=== PATIENT | female | born 1975 | race Hispanic/Latino ===

== ENCOUNTER → 2020-12-15 | Outpatient (CLI) | payer BC ==
[2020-12-15 11:52] LABS: BASO # 0.1 10^3/uL (0.0-0.2); BASO % 0.8 % (0.0-1.0); EOS # 0.2 10^3/uL (0.0-0.5); EOS % 2.2 % (0.0-3.0); HEMATOCRIT 35.7 % (36.0-47.0); HEMOGLOBIN 10.8 g/dl (12.0-15.5); LYMPH # 2.1 10^3/uL (1.5-5.0); LYMPH % 24.5 % (24.0-44.0); MEAN CORPUSCULAR HEMOGLOBIN 20.5 pg (27.0-33.0); MEAN CORPUSCULAR HGB CONC 30.3 g/dl (32.0-36.5); MEAN CORPUSCULAR VOLUME 67.6 fl (80.0-96.0); MONO # 0.7 10^3/uL (0.0-0.8); MONO % 7.8 % (2.0-8.0); NEUTROPHILS # 5.6 10^3/uL (1.5-8.5); NEUTROPHILS % 64.4 % (36.0-66.0); PLATELET COUNT, AUTOMATED 355 10^3/uL (150-450); RED BLOOD COUNT 5.28 10^6/uL (4.00-5.40); WHITE BLOOD COUNT 8.7 10^3/uL (4.0-10.0)
[2020-12-15 12:36] LABS: ALBUMIN 3.9 GM/DL (3.2-5.2); ALT/SGPT 215 U/L (12-78); BILIRUBIN,DIRECT 0.2 MG/DL (0.0-0.2); BILIRUBIN,TOTAL 0.5 MG/DL (0.2-1.0); BLOOD UREA NITROGEN 7 MG/DL (7-18); CREATININE FOR GFR 0.55 MG/DL (0.55-1.30); GLOMERULAR FILTRATION RATE > 60.0 (>58); TOTAL PROTEIN 7.2 GM/DL (6.4-8.2)
== END ==
LOC: M LAB 11:00
PROVIDERS: ATTEND Internal Medicine Gastroenterology
DX: E10.9 Type 1 diabetes mellitus without complications (principal)

== ENCOUNTER → 2021-02-17 | Outpatient (REF) | payer BC ==
[~2021-02-17] MED LIST: BUPR300T92 PO; LISI10TA22 PO; METF10004; METO1TAB87 PO; ROSU40TA4 PO; TIZA4TAB4 PO; TRAZ-189 PO; ZOLO100T PO
== END ==
LOC: M LAB REF 10:25
PROVIDERS: ATTEND Internal Medicine Gastroenterology
DX: R10.30 Lower abdominal pain, unspecified (principal)

== ENCOUNTER → 2021-02-17 | Outpatient (CLI) | payer BC | LOC: M LABSMTC 10:04 | PROVIDERS: ATTEND Anesthesiology | DX: Z01.812 Encounter for preprocedural laboratory examination (principal) ==

== ENCOUNTER 2021-02-22 11:24 | Day surgery (SDC) | payer BC ==
[~2021-02-22] VITALS: Ht 157.5 cm; Wt 78.9 kg
[~2021-02-22 11:24] MED LIST changes: +LIDOCAINE 2% 100MG/5ML SDV (FOR ANES.) As Ordered ONE; +NS 1,000 ML IV ONE; +propofoL 500 MG/50 ML VIAL As Ordered ONE
--- NOTE | 2021-02-22 14:18 | ROOR ---
Patient Name: Erika Sarabia Procedure Date: 02/22/2021 1:36 PM Date of : 1975 Age: 46 Room: [facility] Gender: Female Note Status: Finalized Procedure: Colonoscopy Indications: Acute post hemorrhagic anemia Providers: Alvaro Barlow MD Referring MD: HAYDEE CHRISTIAN MD Requesting Provider: Medicines: Monitored Anesthesia Care Complications: No immediate complications. Procedure: Pre-Anesthesia Assessment: - Prior to the procedure, a History and Physical was performed, and patient medications and allergies were reviewed. The patient is competent. The risks and benefits of the procedure and the sedation options and risks were discussed with the patient. All questions were answered and informed consent was obtained. Patient identification and proposed procedure were verified by the physician, the nurse and the anesthesiologist in the procedure room. Mental Status Examination: alert and oriented. Airway Examination: normal oropharyngeal airway and neck mobility. Respiratory Examination: clear to auscultation. CV Examination: normal. Prophylactic Antibiotics: The patient does not require prophylactic antibiotics. Prior Anticoagulants: The patient has taken no previous anticoagulant or antiplatelet agents. ASA Grade Assessment: II - A patient with mild systemic disease. After reviewing the risks and benefits, the patient was deemed in satisfactory condition to undergo the procedure. The anesthesia plan was to use monitored anesthesia care (MAC). Immediately prior to administration of medications, the patient was re-assessed for adequacy to receive sedatives. The heart rate, respiratory rate, oxygen saturations, blood pressure, adequacy of pulmonary ventilation, and response to care were monitored throughout the procedure. The physical status of the patient was re-assessed after the procedure. The Colonoscope was introduced through the anus and advanced to the terminal ileum, with identification of the appendiceal orifice and IC valve. The colonoscopy was performed without difficulty. The patient tolerated the procedure well. The quality of the bowel preparation was good. The terminal ileum, ileocecal valve, appendiceal orifice, and rectum were photographed. Scope insertion time was 2 minutes. Scope withdrawal time was 6 minutes. The total duration of the procedure was 10 minutes. Findings: The perianal and digital rectal examinations were normal. The terminal ileum appeared normal. Normal mucosa was found in the entire colon. Non-bleeding external and internal hemorrhoids were found during retroflexion. The hemorrhoids were small. Impression: - The examined portion of the ileum was normal. - Normal mucosa in the entire examined colon. - Non-bleeding external and internal hemorrhoids. - No specimens collected. Recommendation: - Patient has a contact number available for emergencies. The signs and symptoms of potential delayed complications were discussed with the patient. Return to normal activities tomorrow. Written discharge instructions were provided to the patient. - High fiber diet. - Continue present medications. - Await pathology results. - Repeat colonoscopy at age 52 for screening purposes. - Return to GI clinic in [facility] (address [address], [address], [place], [facility]) in 4 -- 6 weeks. Please call GI clinic @ [phone] for apppointment date and time. - Return to primary care physician. Procedure Code(s): --- Professional --- 64766, Colonoscopy, flexible; diagnostic, including collection of specimen(s) by brushing or washing, when performed (separate procedure) Diagnosis Code(s): --- Professional --- K64.8, Other hemorrhoids D62, Acute posthemorrhagic anemia CPT copyright 2019 [employer]. All rights reserved. The codes documented in this report are preliminary and upon front office representative review may be revised to meet current compliance requirements. Alvaro Barlow MD Alvaro Barlow MD 02/22/2021 2:18:31 PM Electronically signed by Alvaro Barlow MD Number of Addenda: 0 Note Initiated On: 02/22/2021 1:36 PM Estimated Blood Loss: Estimated blood loss: none.
--- NOTE | 2021-02-22 14:20 | ROOR ---
Patient Name: Erika Sarabia Procedure Date: 02/22/2021 1:35 PM Date of : 1975 Age: 46 Room: [facility] Gender: Female Note Status: Finalized Procedure: Upper GI endoscopy Indications: Acute post hemorrhagic anemia, Dyspepsia Providers: Alvaro Barlow MD Referring MD: HAYDEE CHRISTIAN MD Requesting Provider: Medicines: Monitored Anesthesia Care Complications: No immediate complications. Procedure: Pre-Anesthesia Assessment: - Prior to the procedure, a History and Physical was performed, and patient medications and allergies were reviewed. The patient is competent. The risks and benefits of the procedure and the sedation options and risks were discussed with the patient. All questions were answered and informed consent was obtained. Patient identification and proposed procedure were verified by the physician, the nurse and the anesthesiologist in the procedure room. Mental Status Examination: alert and oriented. Airway Examination: normal oropharyngeal airway and neck mobility. Respiratory Examination: clear to auscultation. CV Examination: normal. Prophylactic Antibiotics: The patient does not require prophylactic antibiotics. Prior Anticoagulants: The patient has taken no previous anticoagulant or antiplatelet agents. ASA Grade Assessment: II - A patient with mild systemic disease. After reviewing the risks and benefits, the patient was deemed in satisfactory condition to undergo the procedure. The anesthesia plan was to use monitored anesthesia care (MAC). Immediately prior to administration of medications, the patient was re-assessed for adequacy to receive sedatives. The heart rate, respiratory rate, oxygen saturations, blood pressure, adequacy of pulmonary ventilation, and response to care were monitored throughout the procedure. The physical status of the patient was re-assessed after the procedure. The Endoscope was introduced through the mouth, and advanced to the second part of duodenum. The upper GI endoscopy was accomplished without difficulty. The patient tolerated the procedure well. Findings: A small hiatal hernia was present. The Z-line was regular and was found in the distal esophagus. Scattered mild inflammation characterized by erythema, friability and granularity was found in the gastric antrum. Biopsies were taken with a cold forceps for Helicobacter pylori testing. Verification of patient identification for the specimen was done by the physician and nurse using the patient's name, date and medical record number. Estimated blood loss was minimal. The duodenal bulb and second portion of the duodenum were normal. Biopsies for histology were taken with a cold forceps for evaluation of celiac disease. Impression: - Small hiatal hernia. - Z-line regular, in the distal esophagus. - Gastritis. Biopsied. - Normal duodenal bulb and second portion of the duodenum. Biopsied. Recommendation: - Patient has a contact number available for emergencies. The signs and symptoms of potential delayed complications were discussed with the patient. Return to normal activities tomorrow. Written discharge instructions were provided to the patient. - High fiber diet. - Follow an antireflux regimen. - Await pathology results. - Return to GI clinic in [facility] (address [address], [address], [place], [facility]) in 4 -- 6 weeks. Please call GI clinic @ [phone] for apppointment date and time. - Check CBC, serum iron , transferrin and ferritin levels (fasting labs) in 4 weeks. - Return to primary care physician. Procedure Code(s): --- Professional --- 13353, Esophagogastroduodenoscopy, flexible, transoral; with biopsy, single or multiple Diagnosis Code(s): --- Professional --- K44.9, Diaphragmatic hernia without obstruction or gangrene K29.70, Gastritis, unspecified, without bleeding D62, Acute posthemorrhagic anemia R10.13, Epigastric pain CPT copyright 2019 [employer]. All rights reserved. The codes documented in this report are preliminary and upon dehydrogenation converter operator review may be revised to meet current compliance requirements. Alvaro Barlow MD Alvaro Barlow MD 02/22/2021 2:19:58 PM Electronically signed by Alvaro Barlow MD Number of Addenda: 0 Note Initiated On: 02/22/2021 1:35 PM Estimated Blood Loss: Estimated blood loss was minimal.
[2021-02-22 14:45] VITALS: BP 142/67
[2021-02-23] MEDS ORDERED: COVI30VI IM (14:21)
== END 2021-02-22 14:58 | disposition home or self-care (01) ==
LOC: M OPP 11:24
PROVIDERS: ATTEND Internal Medicine Gastroenterology
DX: D62 Acute posthemorrhagic anemia (principal); K64.8 Other hemorrhoids; K44.9 Diaphragmatic hernia without obstruction or gangrene; K29.70 Gastritis, unspecified, without bleeding; R10.13 Epigastric pain; K76.89 Other specified diseases of liver; Z79.899 Other long term (current) drug therapy

== ENCOUNTER 2023-03-23 15:16 | Day surgery (SDC) | payer BC ==
[~2023-03-23] VITALS: Ht 154.9 cm; Wt 63.3 kg
[~2023-03-23 15:16] MED LIST changes: +COVI30VI IM; -LIDOCAINE 2% 100MG/5ML SDV (FOR ANES.) As Ordered ONE; -NS 1,000 ML IV ONE; +TIZA10TA PO; -TIZA4TAB4 PO; -propofoL 500 MG/50 ML VIAL As Ordered ONE
[2023-03-23 18:30] VITALS: BP 150/96; TEMP 97.9; O2SAT 98
[2023-03-23] MEDS ORDERED: LORA1TAB23 PO (19:16)
[2023-03-23] MEDS ORDERED: RAMI1CAP21 PO (19:16)
[2023-03-23] MEDS ORDERED: SERO1TAB3 PO (19:16)
[2023-03-23] MEDS ORDERED: MIRT-11 PO (19:16)
[2023-03-23] MEDS ORDERED: HOME MED LIST COMPLETE! XX SCH (19:20)
[2023-03-23 20:20] VITALS: BP 149/95; TEMP 97.9; O2SAT 100
[2023-03-23] MEDS: LR 1,000 ML IV SCH (20:44)
[2023-03-23] MEDS: PIPERACILLIN/TAZOBACTAM SOD 3.375 GM in D5W MINI-BAG PLUS 50 ML IV SCH (20:44)
[2023-03-23] MEDS: ONDANSETRON 4MG 2ML VIAL IV PRN (20:45)
[2023-03-23] MEDS ORDERED: PERCOCET 5MG/325MG TAB PO PRN ×2 (22:30→22:45)
[2023-03-24] VITALS (10 sets, daily range): BP systolic 115–141; BP diastolic 68–87; TEMP 97.3–98.1; O2SAT 98–100
[2023-03-24] MEDS ORDERED: diphenhydrAMINE 50MG/ML VIAL IV STA (02:16)
[2023-03-24] MEDS: LR 1,000 ML IV SCH ×3 (02:45→17:27)
[2023-03-24] MEDS: PIPERACILLIN/TAZOBACTAM SOD 3.375 GM in D5W MINI-BAG PLUS 50 ML IV SCH (03:00)
[2023-03-24] MEDS: ONDANSETRON 4MG 2ML VIAL IV PRN ×3 (03:11→21:16)
[2023-03-24] MEDS ORDERED: LIDOCAINE 1% MDV 20ML VIAL As Ordered ONE (08:02)
[2023-03-24] MEDS ORDERED: ZOSYN 3.375GM VIAL As Ordered ONE (08:47)
[2023-03-24] MEDS ORDERED: HYDROMORPHONE HCL 0.5 MG/ 0.5 ML SYRINGE IV PRN (09:30)
[2023-03-24] MEDS ORDERED: ONDANSETRON 4MG 2ML VIAL IV PRN (09:30)
[2023-03-24] MEDS ORDERED: LR 1,000 ML IV SCH (09:30)
[2023-03-24] MEDS ORDERED: NORCO, ANEXSIA 5/325MG TABLET (HYDROcodone/ACETAMINOPHEN) PO PRN (09:45)
[2023-03-24] MEDS ORDERED: PHENYLephrine 500MCG 5ML (100MCG/ML) SYRINGE As Ordered ONE (09:49)
[2023-03-24] MEDS ORDERED: ROCURONIUM BROMIDE 50MG/5ML VIAL As Ordered ONE (09:49)
[2023-03-24] MEDS ORDERED: ePHEDrine SULFATE 25 MG/5 ML(5MG/ML) SYRINGE As Ordered ONE (09:49)
[2023-03-24] MEDS ORDERED: SUGAMMADEX SODIUM 500 MG/5 ML VIAL (BRIDION) As Ordered ONE (09:49)
[2023-03-24] MEDS ORDERED: ONDANSETRON 4MG 2ML VIAL As Ordered ONE (09:49)
[2023-03-24] MEDS ORDERED: MIDAZOLAM INJ 2MG/2ML VIAL As Ordered ONE (09:49)
[2023-03-24] MEDS ORDERED: ACETAMINOPHEN 1000MG 100ML IV BAG As Ordered ONE (09:49)
[2023-03-24] MEDS ORDERED: LABETALOL 100MG/20ML VIAL As Ordered ONE (09:49)
[2023-03-24] MEDS ORDERED: LIDOCAINE 2% 100MG/5ML SDV (FOR ANES.) As Ordered ONE (09:49)
[2023-03-24] MEDS ORDERED: fentaNYL 250 MCG/5 ML INJECTION As Ordered ONE (09:49)
[2023-03-24] MEDS ORDERED: propofoL 200 MG/20 ML VIAL As Ordered ONE (09:49)
[2023-03-24] MEDS: fentaNYL 100 MCG/2 ML INJECTION IV PRN ×2 (10:01→10:10)
[2023-03-24] MEDS: QUEtiapine FUMARATE 25 MG TAB PO SCH ×2 (10:52→21:11)
[2023-03-24] MEDS: LORazepam 1 MG TAB PO SCH ×3 (10:52→21:14)
[2023-03-24] MEDS: KETOROLAC 30 MG/ML 1ML VIAL IV SCH ×3 (10:53→23:00)
[2023-03-24] MEDS: NORCO, ANEXSIA 5/325MG TABLET (HYDROcodone/ACETAMINOPHEN) PO PRN ×2 (15:19→21:13)
[2023-03-24] MEDS ORDERED: ROSUVASTATIN 10 MG TAB (CRESTOR) PO SCH (21:00)
[2023-03-24] MEDS ORDERED: ramipriL 1.25 MG CAP PO SCH (21:00)
[2023-03-24] MEDS: METOPROLOL TART 25 MG TABLET PO SCH (21:12)
[2023-03-25] MEDS: LR 1,000 ML IV SCH ×2 (01:40→09:22)
[2023-03-25 03:30] VITALS: BP 115/71; TEMP 97.7; O2SAT 98
[2023-03-25] MEDS: KETOROLAC 30 MG/ML 1ML VIAL IV SCH (04:41)
[2023-03-25 06:04] LABS: BASO % 0.3 % (0.0-1.0); EOS # 0.1 10^3/uL (0.0-0.5); EOS % 0.6 % (0.0-3.0); HEMATOCRIT 30.1 % (36.0-47.0); HEMOGLOBIN 9.2 g/dl (12.0-15.5); LYMPH # 2.9 10^3/uL (1.5-5.0); LYMPH % 26.8 % (24.0-44.0); MEAN CORPUSCULAR HEMOGLOBIN 18.2 pg (27.0-33.0); MEAN CORPUSCULAR HGB CONC 30.6 g/dl (32.0-36.5); MEAN CORPUSCULAR VOLUME 59.5 fl (80.0-96.0); MONO # 0.8 10^3/uL (0.0-0.8); MONO % 7.8 % (2.0-8.0); NEUTROPHILS # 6.9 10^3/uL (1.5-8.5); PLATELET COUNT, AUTOMATED 458 10^3/uL (150-450); RED BLOOD COUNT 5.06 10^6/uL (4.00-5.40); WHITE BLOOD COUNT 10.8 10^3/uL (4.0-10.0)
[2023-03-25 06:34] LABS: BLOOD UREA NITROGEN < 5 MG/DL (9-23); CALCIUM LEVEL 8.7 MG/DL (8.5-10.1); CARBON DIOXIDE LEVEL 28 MMOL/L (20-31); CHLORIDE LEVEL 106 MMOL/L (98-107); CREATININE FOR GFR 0.61 MG/DL (0.55-1.30); GLOMERULAR FILTRATION RATE > 60.0 (>58); GLUCOSE, FASTING 109 MG/DL (60-100); POTASSIUM SERUM 3.6 MMOL/L (3.5-5.1); SODIUM LEVEL 140 MMOL/L (136-145)
[2023-03-25 07:30] VITALS: BP 138/85; TEMP 97.9; O2SAT 100
[2023-03-25] MEDS ORDERED: LACTOBACILLUS ACIDOPHILUS CAP (BACID) PO SCH (09:00)
[2023-03-25] MEDS: QUEtiapine FUMARATE 25 MG TAB PO SCH (09:12)
[2023-03-25] MEDS: NORCO, ANEXSIA 5/325MG TABLET (HYDROcodone/ACETAMINOPHEN) PO PRN (09:12)
[2023-03-25 09:13] VITALS: BP 134/85
[2023-03-25] MEDS: LORazepam 1 MG TAB PO SCH (09:13)
[2023-03-25] MEDS: METOPROLOL TART 25 MG TABLET PO SCH (09:13)
[2023-03-25] MEDS ORDERED: HYDR-3715 PO (10:51)
[2023-03-25] MEDS ORDERED: RISATAB3 PO (10:51)
[2023-03-25 11:30] VITALS: BP 132/85; TEMP 98.1; O2SAT 100
== END 2023-03-25 13:00 | disposition home or self-care (01) ==
LOC: M SDC 15:16 → M MSPAV 18:25 → UNDOADMOB 18:25 → M SDC 03-25 13:00 → UNDODISOB 03-25 13:00
PROVIDERS: ATTEND Surgery
DX: K35.890 Other acute appendicitis without perforation or gangrene (principal); I10 Essential (primary) hypertension; E78.5 Hyperlipidemia, unspecified; D56.3 Thalassemia minor; F43.10 Post-traumatic stress disorder, unspecified; F41.9 Anxiety disorder, unspecified; F32.A Depression, unspecified; Z98.84 Bariatric surgery status; Z79.899 Other long term (current) drug therapy; Z88.5 Allergy status to narcotic agent
CPT/HCPCS: 36415; 44970; 80048; 85025; 87507; 88304; 96361; 96365; 96366; 96375; 96376; J0131; J0665; J1100; J1200; J1885; J1920; J2250; J2371; J2405; J2543; J3010